=== PATIENT | male | born 1985 | race Caucasian/White ===

== ENCOUNTER 2020-02-03 08:52 | Emergency (ER) | payer BC, OTHER ==
[~2020-02-03] VITALS: Ht 180.3 cm; Wt 119.0 kg
--- NOTE | 2020-02-03 08:54 | ED General ---
General Stated Complaint: FACIAL SWELLING; DENTAL PAIN Source of Information: Patient History of Present Illness Date Seen by Provider: February 03, 2020 Time Seen by Provider: 08:55 Initial Comments Patient is a 35-year-old male who comes to the emergency department today complaining of dental abscess and facial swelling. He was evaluated yesterday at a local urgent care and diagnosed with dental-related abscess. Today, he comes to the ER complaining of some pruritus and itching with erythema on the hands an d arms. He thinks he has an allergy to the medication he was given, Augmentin. No hives. No airway swelling. He does have worsening swelling over the left side of his face. Allergies and Home Medications Allergies Coded Allergies: amoxicillin (Verified Allergy, Mild, 02/03/20) clavulanic acid (Verified Allergy, Mild, 02/03/20) Patient Home Medication List Home Medication List Reviewed: Yes Review of Systems Review of Systems Constitutional: no symptoms reported EENTM: see HPI Respiratory: no symptoms reported Cardiovascular: no symptoms reported Musculoskeletal: no symptoms reported Skin: no symptoms reported All Other Systems Reviewed Negative Unless Noted: Yes Physical Exam Vital Signs Vital Signs - First Documented 02/03/20 09:06 Temp 36.4 Pulse 84 Resp 16 B/P (MAP) 154/97 (116) Pulse Ox 98 O2 Delivery Room Air Capillary Refill : Height, Weight, BMI Height: '" Weight: lbs. oz. kg; BMI Method: General Appearance: No Apparent Distress, WD/WN HEENT: PERRL/EOMI, TMs Normal, Other (facial swelling along the left nasolabial fold with some erythema of the gingiva in that area on the maxillary premolar region on the left) Respiratory: Lungs Clear Cardiovascular: Regular Rate, Rhythm, No Edema Neurologic/Psychiatric: Alert, Oriented x3 Skin: Normal Color Progress/Results/Core Measures Suspected Sepsis SIRS Temperature: Pulse: Respiratory Rate: Blood Pressure / Mean: Results/Orders My Orders Orders - TREVA MICHEL DO Clindamycin 900 Mg/50 Ml Ivpb (Cleocin P (02/03/20 09:15) Medications Given in ED Current Medications Medications Dose Ordered Sig/Yu Route Start Time Stop Time Status Last Admin Dose Admin Clindamycin Phosphate/Dextrose 50 ml @ 100 mls/hr ONCE ONCE IV 02/03/20 09:15 02/03/20 09:44 DC 02/03/20 09:17 100 MLS/HR Vital Signs/I&O 02/03/20 09:06 Temp 36.4 Pulse 84 Resp 16 B/P (MAP) 154/97 (116) Pulse Ox 98 O2 Delivery Room Air Capillary Refill : Progress Note : Time: 09:14 Progress Note Patient is seen and examined. Overall non-toxic and afebrile. No acute urticaria. No swelling or compromise of airway. Will change antibiotics to clindamycin and will give first dose in the ER intravenously. ED Summary: Patient is seen in the emergency department for her developing dental abscess. In the ER, he is given a dose of IV clindamycin. He is dis charged home with clindamycin and recommended to stop taking Augmentin. He is referred to oral maxillofacial surgeon in the [place] area for close follow- up. Departure Impression Primary Impression: Dental abscess Disposition: 01 HOME, SELF-CARE Condition: Improved TREVA MICHEL DO February 03, 2020 08:54
--- OUTSIDE RECORDS SUMMARY | 2020-02-03 08:57 | XMS REPORT | Continuity of Care Document ---
Author Organization Unknown Address Unknown Phone Unavailable Allergies There is no data. Medications There is no data. Problems There is no data. Procedures There is no data. Results Test Result Range CULTURE, THROAT - 05/23/19 09:06 CULTURE, THROAT SEE NOTE NRG Encounters ACCT No. Visit Date/Time Discharge Status Pt. Type Provider Facility Loc./Unit Complaint [id number] 05/23/2019 08:40:00 05/23/2019 23:59: 59 [facility] Outpatient [facility] [id number] 05/23/2019 08:40:00 Document Registration [id number] 04/13/2018 16:33:00 [facility] Unknown
[2020-02-03] MEDS ORDERED: CLINDAMYCIN 900 MG/50 ML IVPB 50 ML IV ONE (09:15)
[2020-02-03] MEDS ORDERED: CLIN300C11 PO (09:48)
[2020-02-03 09:57] VITALS: BP 154/97
== END 2020-02-03 09:54 | disposition home or self-care (01) ==
LOC: ER FS 08:54
DX: K04.7 Periapical abscess without sinus (principal); Z88.0 Allergy status to penicillin; Z88.1 Allergy status to other antibiotic agents
CPT/HCPCS: 96365